=== PATIENT | female | born 2000 | race Caucasian/White ===

== ENCOUNTER 2023-08-01 10:04 | Observation (INO) | payer OTHER, SELFPAY ==
[2023-08-01] VITALS (33 sets, daily range): BP systolic 114–144; BP diastolic 57–93; PULSE 57–69; O2SAT 96–100; BMI 23.8
--- NOTE | ~2023-08-01 | US_ITS ---
EXAMINATION: US OB BPP wo non-stress DATE: 08/01/2023 12:42 INDICATION: Decelerations. Third trimester. TECHNIQUE: Real-time pelvic ultrasound was performed. COMPARISON: None. FINDINGS: There is a single living fetus in vertex presentation. The placenta is posterior. heart rate i s 144 beats per minute (bpm). The deepest vertical pocket is 3.9 cm, which is normal. Biophysical profile performed by the technologist: breathing (30 sec sustained breathing in 30 minutes): 2 out of 2 movement (3 gross body movements in 30 minutes): 2 out of 2 tone (one episode of inktwtw-eiwnmttgm-uipoyjs limb movement): 2 out of 2 Amniotic fluid pocket (2 cm): 2 out of 2 Total score: 8 out of 8 IMPRESSION: 1. Single living fetus in vertex presentation. 2. Biophysical profile 8 out of 8. Reviewed, dictated and finalized at location A.
[2023-08-01] MEDS: LACTATED RINGERS 500 ML 999 ML IV CONT (11:22)
--- NOTE | 2023-08-01 11:39 | OBADM ---
This patient, Joaquina Ortiz, admitted to the OB room OB Post 115 for observation. Patient/family oriented to hospital policies and general routines including ID bracelet, bed and alarms, visiting hours, pain management, procedures, bathroom and other care routines, personal items, smoking policy, room service/diet, and visiting hours. Patient/Family are encouraged to report perceived risks to care and to ask questions if they do not understand what they are told or what they should do.
--- NOTE | 2023-08-01 11:43 | PC.NURSE ---
1040- S. Larry [facility] notified of NST, orders received to give patient fluids.
[2023-08-01 12:23] LABS: Appearance Urine Clear (Clear); Bacteria Urine None Seen /hpf; Bilirubin Urine Negative (Negative); Blood Urine Negative (Negative); Color Urine Yellow (Yellow); Glucose Urine UA Negative (Negative); Ketones Urine Negative (Negative); Leukocyte Esterase Ur 3+ LEU/UL (Negative); Nitrate Urine Negative (Negative); Non Pathogenic Casts 0-2; Protein Urine Negative (Negative); RBC Urine 0-2 /hpf (0-2); Squamous Epithelial Cell Urine None Seen /hpf (Few); Urobilinogen Urine 0.2 mg/dL (<2.0); WBC Urine 21-50 /hpf (0-3); pH Urine 7.5 (5.0-9.0)
[2023-08-01 12:29] LABS: Add Urine Microscopic? YES; Specific Grav Ur 1.004 (1.001-1.035)
--- NOTE | 2023-08-01 12:52 | PC.NURSE ---
1238- S.Larry [facility] notified of ultrasound and lab results. Orders received to keep patient on continuous monitoring overnight. Patient in agreement with plan of care.
[2023-08-01 13:27] LABS: Basophils Percent Auto 0.4 % (0.2-1.2); Eosinophils Absolute Auto 0.2 K/mm3 (0-0.3); Eosinophils Percent Auto 1.8 % (0-4.4); Hematocrit 34.8 % (37.0-47.0); Hemoglobin 11.6 g/dL (12.0-15.0); Immature Granulocyte Absolute 0.07 K/mm3 (0.00-0.031); Immature Granulocyte Percent A 0.6 % (0-0.5); Lymphocytes Absolute Auto 1.39 K/mm3 (0.9-3.2); Lymphocytes Percent Auto 12.6 % (18.3-44.2); Mean Corpuscular HGB Conc 33.3 g/dl (32-36); Mean Platelet Volume 12.5 fl (7.4-10.4); Monocytes Absolute Auto 0.8 K/mm3 (0.1-0.6); Monocytes Percent Auto 6.9 % (2.6-8.5); Neutrophils Absolute Auto 8.5 K/mm3 (1.3-6.7); Neutrophils Percent Auto 77.7 % (45.5-73.1); Platelet Count Result 109 k/mm3 (150-375); Red Blood Count 3.74 M/mm3 (4.2-5.4)
[2023-08-01 13:34] LABS: Creatinine Urine 12.6 mg/dL; Total Protein Urine Random 16 mg/dL; Ur Ttl Prot Creatinine Ratio 1.27 mg/mg (0-0.20)
[2023-08-01 13:36] LABS: Alanine Aminotransferase 15 U/L (6-35); Albumin Level 3.4 g/dL (3.5-5.1); Alkaline Phosphatase 128 U/L (38-126); Anion Gap 5 mmol/L (4-12); Aspartate Amino Transferase 21 U/L (14-36); Bilirubin,Total 0.5 mg/dL (0.2-1.3); Blood Urea Nitrogen 6 mg/dL (7-17); Calcium 8.8 mg/dL (8.4-10.2); Carbon Dioxide 24 mmol/L (22-30); Chloride 109 mmol/L (98-107); Estimated CRCL calculation 140 ml/min; Estimated Glomerular Filt Rate > 60; Glucose 76 mg/dL (65-110); Potassium 3.4 mmol/L (3.4-5.0); Sodium 138 mmol/L (137-145); Uric Acid 2.2 mg/dL (2.5-7.5)
--- NOTE | 2023-08-01 16:36 | PM.IMHP ---
H&P: HPI History of Present Illness Date/Time: 08/01/23 16:36 Chief Complaint: pt to LD for evaluation after variable deceleration in the office on NST, has weekly NST for SGA vs FGR, last US at [facility] EFW 12%. deceleration noted on admission today. currently FHR category 1, no contractions noted. Blood pressure in office and first here >140 and labs drawn. PLT 109, PCR 1.26. last blood pressure 128/77. has been complicated by +THC. Currently denies headache, epigastric pain, visual changes. Review of Systems Review of Systems: All systems reviewed & are unremarkable except as noted in HPI and below Meds Home Medications and Allergies Home Medications Medication Instructions Recorded Confirmed Type aspirin 81 mg capsule 81 mg PO DAILY 08/01/23 08/01/23 History czibiplt-mlx-[id number]-FA 1 mg tablet PO 08/01/23 History tablet Allergies Allergy/AdvReac Type Severity Reaction Status Date / Time Sulfa (Sulfonamide Allergy Hives Verified 08/01/23 11:29 Antibiotics) Vital Signs Vital Signs - 24 hr 08/01/23 10:55 08/01/23 11:00 08/01/23 11:05 Pulse Rate Blood Pressure Pulse Oximetry 96 96 96 Oxygen Delivery 08/01/23 11:10 08/01/23 11:15 08/01/23 11:20 Pulse Rate Blood Pressure Pulse Oximetry 97 97 96 Oxygen Delivery 08/01/23 11:21 08/01/23 11:26 08/01/23 11:31 Pulse Rate Blood Pressure Pulse Oximetry 100 100 100 Oxygen Delivery 08/01/23 11:36 08/01/23 11:41 08/01/23 11:46 Pulse Rate Blood Pressure Pulse Oximetry 100 100 98 Oxygen Delivery 08/01/23 11:51 08/01/23 11:56 08/01/23 12:01 Pulse Rate Blood Pressure Pulse Oximetry 99 100 99 Oxygen Delivery 08/01/23 13:11 08/01/23 14:23 08/01/23 11:00 Pulse Rate 63 62 Blood Pressure 140/84 115/57 L Pulse Oximetry Oxygen Delivery Room Air Exam Const: General: cooperative Nutritional Appearance: average body habitus Chest: Chest palpation & inspection: normal inspection of the chest Resp: Effort & Inspection: normal respiratory effort Cardio: Rate: regular rate Rhythm: regular rhythm GI: Other: gravid, soft Skin: General skin exam: normal color Neuro: General: patient oriented x3 Psych: Appearance: grossly normal H&P: Results Labs Labs: Short CBC 08/01/23 Range/Units 13:20 WBC 11.0 H (4.5-10.0) K/mm3 Hgb 11.6 L (12.0-15.0) g/dL Hct 34.8 L (37.0-47.0) % Plt Count 109 L (150-375) k/mm3 BMP 08/01/23 13:20 Sodium 138 Potassium 3.4 Chloride 109 H Carbon Dioxide 24 BUN 6 L Creatinine 0.40 L Glucose 76 Calcium 8.8 Liver Function 08/01/23 Range/Units 13:20 Total Bilirubin 0.5 (0.2-1.3) mg/dL AST 21 (14-36) U/L ALT 15 (6-35) U/L Alkaline Phosphatase 128 H (38-126) U/L Albumin 3.4 L (3.5-5.1) g/dL Urine 08/01/23 Range/Units 12:09 Urine Color Yellow (Yellow) Urine Appearance Clear (Clear) Urine pH 7.5 (5.0-9.0) Ur Specific [place] 1.004 (1.001-1.035) Urine Protein Negative (Negative) mg/dL Urine Glucose (UA) Negative (Negative) mg/dL Assessment and Plan Assessment and plan (1) growth restriction: Status: Acute (2) Elevated blood pressure reading: Code(s): R03.0 - Elevated blood-pressure reading, without diagnosis of hypertension Status: Acute Plan 33.3 weeks gestation sga vs FGR PLT 109, PCR >1 plan rpt labs in am continuous monitoring managing with Dr. Moralez
--- NOTE | 2023-08-01 17:00 | PC.NURSE ---
Randa Juarez CNM at bedside to discuss monitoring overnight. Labs ordered for 0500. Patient in agreement with plan of care. IV removed per patient's request.
[2023-08-02] VITALS (53 sets, daily range): BP systolic 107–153; BP diastolic 55–98; PULSE 55–137; O2SAT 96–100
[2023-08-02 05:02] LABS: Basophils Percent Auto 0.3 % (0.2-1.2); Eosinophils Absolute Auto 0.2 K/mm3 (0-0.3); Eosinophils Percent Auto 2.4 % (0-4.4); Hemoglobin 12.2 g/dL (12.0-15.0); Immature Granulocyte Absolute 0.06 K/mm3 (0.00-0.031); Immature Granulocyte Percent A 0.6 % (0-0.5); Immature Platelet Fraction Pct 10.8 % (0.9-11.2); Lymphocytes Absolute Auto 1.62 K/mm3 (0.9-3.2); Lymphocytes Percent Auto 16.1 % (18.3-44.2); Mean Corpuscular HGB Conc 33.9 g/dl (32-36); Mean Corpuscular Volume 91.6 fl (80-100); Mean Platelet Volume 11.4 fl (7.4-10.4); Monocytes Absolute Auto 0.6 K/mm3 (0.1-0.6); Monocytes Percent Auto 6.4 % (2.6-8.5); Neutrophils Absolute Auto 7.5 K/mm3 (1.3-6.7); Neutrophils Percent Auto 74.2 % (45.5-73.1); Platelet Count Result 120 k/mm3 (150-375); Red Blood Count 3.93 M/mm3 (4.2-5.4); Red Cell Distribution Width 13.1 % (11.5-14.5); White Blood Count 10.1 K/mm3 (4.5-10.0)
[2023-08-02 05:10] LABS: Alanine Aminotransferase 16 U/L (6-35); Albumin Level 3.3 g/dL (3.5-5.1); Alkaline Phosphatase 131 U/L (38-126); Anion Gap 4 mmol/L (4-12); Aspartate Amino Transferase 21 U/L (14-36); Bilirubin,Total 0.8 mg/dL (0.2-1.3); Blood Urea Nitrogen 5 mg/dL (7-17); Calcium 8.7 mg/dL (8.4-10.2); Carbon Dioxide 22 mmol/L (22-30); Chloride 109 mmol/L (98-107); Estimated CRCL calculation 115 ml/min; Estimated Glomerular Filt Rate > 60; Glucose 90 mg/dL (65-110); Potassium 3.1 mmol/L (3.4-5.0); Sodium 135 mmol/L (137-145); Uric Acid 2.3 mg/dL (2.5-7.5)
[2023-08-02] MEDS: TERBUTALINE SULFATE 1 MG/ML VIAL 0.25 MG SUB-Q (05:47)
--- NOTE | 2023-08-27 17:57 | PM.OBTRLD ---
OB - Triage/Final Diagnosis Visit Information Comments/Additional reasons for admission: I have assessed the risk for this patient, Joaquina Ortiz, and determined that she would benefit from observation care. Evaluation Laboratory results: Laboratory Tests 08/01/23 08/01/23 08/02/23 12:09 13:20 04:55 WBC 11.0 H Cancelled RBC 3.74 L Hgb 11.6 L Hct 34.8 L MCV 93.0 MCH 31.0 MCHC 33.3 RDW 13.0 Plt Count 109 L MPV 12.5 H Immature Gran % (Auto) 0.6 H Neut % (Auto) 77.7 H Lymph % (Auto) 12.6 L [place] % (Auto) 6.9 Eos % (Auto) 1.8 Baso % (Auto) 0.4 Lymph # (Auto) 1.39 [place] # (Auto) 0.8 H Eos # (Auto) 0.2 Baso # (Auto) 0.0 Abs Immat Gran (auto) 0.07 H Absolute Neuts (auto) 8.5 H Absolute Nucleated RBC 0.000 Nucleated RBC % 0.0 % Immature Plt Fraction Sodium 138 Potassium 3.4 Chloride 109 H Carbon Dioxide 24 Anion Gap 5 BUN 6 L Creatinine 0.40 L Estim Creat Clear Calc 140 Estimated GFR > 60 Glucose 76 Uric Acid 2.2 L Calcium 8.8 Total Bilirubin 0.5 AST 21 ALT 15 Alkaline Phosphatase 128 H Total Protein 7.0 Albumin 3.4 L Urine Color Yellow Urine Appearance Clear Urine pH 7.5 Ur Specific [place] 1.004 Urine Protein Negative Urine Glucose (UA) Negative Urine Ketones Negative Ur Blood (Man) Negative Urine Nitrate Negative Urine Bilirubin Negative Urine Urobilinogen 0.2 Leukocyte Esterase Rfl 3+ H Urine RBC 0-2 Urine WBC 21-50 H Ur Squamous Epith Cells None seen Urine Bacteria None seen Urine Casts 0-2 U Random Total Protein 16 Urine Creatinine 12.6 Protein/Creat Ratio 2 1.27 H 08/02/23 08/02/23 08/02/23 04:55 04:55 04:55 WBC 10.1 H RBC Cancelled 3.93 L Hgb Cancelled 12.2 Hct Cancelled MCV MCH MCHC RDW Plt Count MPV Immature Gran % (Auto) Neut % (Auto) Lymph % (Auto) [place] % (Auto) Eos % (Auto) Baso % (Auto) Lymph # (Auto) [place] # (Auto) Eos # (Auto) Baso # (Auto) Abs Immat Gran (auto) Absolute Neuts (auto) Absolute Nucleated RBC Nucleated RBC % % Immature Plt Fraction Sodium Potassium Chloride Carbon Dioxide Anion Gap BUN Creatinine Estim Creat Clear Calc Estimated GFR Glucose Uric Acid Calcium Total Bilirubin AST ALT Alkaline Phosphatase Total Protein Albumin Urine Color Urine Appearance Urine pH Ur Specific [place] Urine Protein Urine Glucose (UA) Urine Ketones Ur Blood (Man) Urine Nitrate Urine Bilirubin Urine Urobilinogen Leukocyte Esterase Rfl Urine RBC Urine WBC Ur Squamous Epith Cells Urine Bacteria Urine Casts U Random Total Protein Urine Creatinine Protein/Creat Ratio 2 08/02/23 08/02/23 08/02/23 04:55 04:55 04:55 WBC RBC Hgb Hct 36.0 L MCV Cancelled 91.6 MCH Cancelled 31.0 MCHC Cancelled RDW Plt Count MPV Immature Gran % (Auto) Neut % (Auto) Lymph % (Auto) [place] % (Auto) Eos % (Auto) Baso % (Auto) Lymph # (Auto) [place] # (Auto) Eos # (Auto) Baso # (Auto) Abs Immat Gran (auto) Absolute Neuts (auto) Absolute Nucleated RBC Nucleated RBC % % Immature Plt Fraction Sodium Potassium Chloride Carbon Dioxide Anion Gap BUN Creatinine Estim Creat Clear Calc Estimated GFR Glucose Uric Acid Calcium Total Bilirubin AST ALT Alkaline Phosphatase Total Protein Albumin Urine Color Urine Appearance Urine pH Ur Specific [place] Urine Protein Urine Glucose (UA) Urine Ketones Ur Blood (Man) Urine Nitrate Urine Bilirubin Urine Urobilinogen Leukocyte Esterase Rfl Urine RBC Urine WBC Ur Squamous Epith C
== END 2023-08-02 08:43 | disposition home or self-care (01) ==
LOC: ANHOBOP 10:46 → ANHOBPP 10:50
PROVIDERS: Admitting Provider Obstetrics & Gynecology; PCP Advanced Practice Midwife; Visit Provider Obstetrics & Gynecology
DX: O36.5930 Maternal care for other known or suspected poor fetal growth, third trimester, not applicable or unspecified (principal); O16.3 Unspecified maternal hypertension, third trimester; Z3A.33 33 weeks gestation of pregnancy
CPT/HCPCS: 36415; 76819; 80053; 81001; 82570; 84156; 84550; 85025; 85055; 87086; 87088; 96372; G0378; G0379; J3105; J7120

== ENCOUNTER 2023-08-19 11:42 | Outpatient (CLI) | payer OTHER, SELFPAY ==
--- NOTE | ~2023-08-19 | US_ITS ---
LIMITED OBSTETRIC ULTRASOUND/BIOPHYSICAL PROFILE Ordering provider: Josesito Rascon MD History: . BPP/ nonreactive NST in office . Comparison: August 01, 2023 FINDINGS: PRESENTATION: Vertex PLACENTAL LOCATION: Posterior No previa. HEART RATE: 136 bpm (normal is between 110 to 160 bpm). AMNIOTIC FLUID INDEX: Normal. The largest pocket is 2.9 cm. SCORE: breathing movements: 2 movements: 2 tone: 2 Amniotic fluid volume: 2 Total: 8 IMPRESSION: Normal biophysical profile. Reviewed, dictated and finalized at location A. IMPRESSION: Normal biophysical profile.
[2023-08-19 12:14] VITALS: BP 142/97; PULSE 72
[2023-08-19 12:20] LABS: Basophils Percent Auto 0.2 % (0.2-1.2); Eosinophils Percent Auto 0.3 % (0-4.4); Hematocrit 34.8 % (37.0-47.0); Hemoglobin 11.9 g/dL (12.0-15.0); Immature Granulocyte Percent A 0.8 % (0-0.5); Immature Platelet Fraction Pct 12.3 % (0.9-11.2); Lymphocytes Absolute Auto 1.59 K/mm3 (0.9-3.2); Lymphocytes Percent Auto 12.4 % (18.3-44.2); Mean Corpuscular HGB Conc 34.2 g/dl (32-36); Mean Corpuscular Hemoglobin 31.2 pg (26-34); Mean Corpuscular Volume 91.1 fl (80-100); Mean Platelet Volume 11.7 fl (7.4-10.4); Monocytes Absolute Auto 0.6 K/mm3 (0.1-0.6); Monocytes Percent Auto 4.7 % (2.6-8.5); Neutrophils Absolute Auto 10.5 K/mm3 (1.3-6.7); Neutrophils Percent Auto 81.6 % (45.5-73.1); Platelet Count Result 140 k/mm3 (150-375); Red Blood Count 3.82 M/mm3 (4.2-5.4); Red Cell Distribution Width 13.3 % (11.5-14.5); White Blood Count 12.8 K/mm3 (4.5-10.0)
[2023-08-19 12:29] LABS: Alanine Aminotransferase 15 U/L (6-35); Albumin Level 3.4 g/dL (3.5-5.1); Alkaline Phosphatase 135 U/L (38-126); Anion Gap 4 mmol/L (4-12); Aspartate Amino Transferase 18 U/L (14-36); Bilirubin,Total 0.5 mg/dL (0.2-1.3); Blood Urea Nitrogen 7 mg/dL (7-17); Calcium 9.1 mg/dL (8.4-10.2); Carbon Dioxide 24 mmol/L (22-30); Chloride 108 mmol/L (98-107); Estimated Glomerular Filt Rate > 60; Glucose 75 mg/dL (65-110); Potassium 3.3 mmol/L (3.4-5.0); Sodium 136 mmol/L (137-145); Uric Acid 2.7 mg/dL (2.5-7.5)
[2023-08-19 12:30] VITALS: BP 140/92; PULSE 73
[2023-08-19 12:32] LABS: Creatinine Urine 40.5 mg/dL; Total Protein Urine Random 16 mg/dL
[2023-08-19 12:37] LABS: Appearance Urine Clear (Clear); Bacteria Urine None Seen /hpf; Bilirubin Urine Negative (Negative); Blood Urine Negative (Negative); Color Urine Yellow (Yellow); Glucose Urine UA Negative (Negative); Ketones Urine Negative (Negative); Leukocyte Esterase Ur 2+ LEU/UL (Negative); Nitrate Urine Negative (Negative); Non Pathogenic Casts 0-2; Protein Urine Negative (Negative); RBC Urine 0-2 /hpf (0-2); Specific Grav Ur 1.006 (1.001-1.035); Squamous Epithelial Cell Urine Occasional /hpf (Few); Urobilinogen Urine 0.2 mg/dL (<2.0)
[2023-08-19 12:44] VITALS: BP 144/85; PULSE 72
[2023-08-19 12:50] LABS: Add Urine Microscopic? YES
[2023-08-19 13:00] VITALS: BP 144/94; PULSE 69
[2023-08-19 13:05] VITALS: BP 144/94; PULSE 75
--- NOTE | 2023-08-19 13:05 | PC.NURSE ---
1252- Dr. Rascon notified of reactive NST and lab results
== END 2023-08-19 13:34 | disposition home or self-care (01) ==
LOC: ANHOBOP 11:47 → ANHLDR 12:00
PROVIDERS: PCP Advanced Practice Midwife; Visit Provider Obstetrics & Gynecology
DX: O13.9 Gestational [pregnancy-induced] hypertension without significant proteinuria, unspecified trimester (principal)
CPT/HCPCS: 36415; 59025; 76819; 80053; 81001; 82570; 84156; 84550; 85025; 85055; 87086; 99199

== ENCOUNTER 2023-08-22 11:21 | Inpatient (IN) | payer OTHER, SELFPAY ==
[2023-08-22] VITALS (38 sets, daily range): BP systolic 129–167; BP diastolic 73–107; PULSE 66–139; TEMP 36.4–36.7; BMI 24.0
[2023-08-22] MEDS: miSOPROStol 25 MCG TABLET 50 MCG PO ×3 (13:08→20:57)
[2023-08-22 13:13] LABS: Basophils Percent Auto 0.3 % (0.2-1.2); Eosinophils Percent Auto 0.1 % (0-4.4); Hemoglobin 11.4 g/dL (12.0-15.0); Immature Granulocyte Absolute 0.08 K/mm3 (0.00-0.031); Immature Granulocyte Percent A 0.7 % (0-0.5); Immature Platelet Fraction Pct 11.5 % (0.9-11.2); Lymphocytes Percent Auto 13.6 % (18.3-44.2); Mean Corpuscular HGB Conc 34.5 g/dl (32-36); Mean Corpuscular Hemoglobin 31.4 pg (26-34); Mean Corpuscular Volume 90.9 fl (80-100); Mean Platelet Volume 11.9 fl (7.4-10.4); Monocytes Absolute Auto 0.5 K/mm3 (0.1-0.6); Monocytes Percent Auto 4.5 % (2.6-8.5); Neutrophils Absolute Auto 9.5 K/mm3 (1.3-6.7); Neutrophils Percent Auto 80.8 % (45.5-73.1); Platelet Count Result 131 k/mm3 (150-375); Red Blood Count 3.63 M/mm3 (4.2-5.4); Red Cell Distribution Width 13.2 % (11.5-14.5); White Blood Count 11.8 K/mm3 (4.5-10.0)
[2023-08-22 13:24] LABS: Alanine Aminotransferase 16 U/L (6-35); Albumin Level 3.6 g/dL (3.5-5.1); Alkaline Phosphatase 151 U/L (38-126); Anion Gap 6 mmol/L (4-12); Aspartate Amino Transferase 20 U/L (14-36); Bilirubin,Total 0.8 mg/dL (0.2-1.3); Blood Urea Nitrogen 6 mg/dL (7-17); Calcium 8.7 mg/dL (8.4-10.2); Carbon Dioxide 22 mmol/L (22-30); Chloride 108 mmol/L (98-107); Estimated Glomerular Filt Rate > 60; Glucose 83 mg/dL (65-110); Potassium 3.2 mmol/L (3.4-5.0); Sodium 136 mmol/L (137-145)
[2023-08-22 13:25] LABS: Uric Acid 2.3 mg/dL (2.5-7.5)
[2023-08-22] MEDS: LABETALOL HCL 100 MG TABLET 200 MG PO (13:36)
[2023-08-22 14:26] LABS: HIV 1/2 Ab P24 Ag Result Negative (Negative)
[2023-08-22 14:38] LABS: Amphetamine Screen Urine Negative (Negative); Barbiturate Screen Urine Negative (Negative); Benzodiazepines Screen Urine Negative (Negative); Cannabinoid Screen Urine Positive (Negative); Cocaine Screen Urine Negative (Negative); Methadone Screen Urine Negative (Negative); Opiate Screen Urine Negative (Negative); Phencyclidine Screen Urine Negative (Negative)
--- NOTE | 2023-08-22 15:32 | LDADM ---
This patient, Joaquina Ortiz, was admitted to Labor/Delivery/Recovery 107 on 08/22/23 at 11:21. Plans for labor, pain management and were discussed with patient. Patient/family oriented to hospital policies and general routines including ID bracelet, bed and alarms, visiting hours, pain management, procedures, bathroom and other care routines, personal items, smoking policy, room service/diet and guest tray routines, infant security routines, and visiting hours. Patient/Family are encouraged to report perceived risks to care and to ask questions if they do not understand what they are told or what they should do. See OBIX for further documentation.
--- NOTE | 2023-08-22 16:35 | PM.IMHP ---
H&P: HPI History of Present Illness Date/Time: 08/22/23 16:35 Chief Complaint: at 36.3 weeks gestation, admitted per [facility] recommendation for IOL for SGA, poor maternal weight gain, Cannibis exposure, and severe blood pressure readings in the office. at this time, pt denies headache, visual changes, epigastric pain. Review of Systems Review of Systems: All systems reviewed & are unremarkable except as noted in HPI and below PMFSH Family History Family History (Updated 08/22/23 @ 13:18 by Barbara Cantrell RN) Other Patient denies significant medical history Social History Social History Smoking status: Never smoker Second hand tobacco smoke exposure: Yes Substance use: current Last use: daily Do You Feel Safe in your Home?: Yes Lack of Transportation: No Lack of Food: Never True Current Housing: I Have Housing Concerned About Future Housing: No Difficulty Paying Gas/Electric Bills: No Difficulty Paying for Meds: No Currently Unemployed: No Education: High School Diploma/GED Difficulty w/ Childcare or Family Care: No Spiritual care concerns: No Meds Home Medications and Allergies Home Medications Medication Instructions Recorded Confirmed Type aspirin 81 mg capsule 81 mg PO DAILY 08/01/23 08/22/23 History obwvkhdt-ubr-Vx-FA 1 mg 1 tablet PO DAILY 08/01/23 08/22/23 History tablet Allergies Allergy/AdvReac Type Severity Reaction Status Date / Time Sulfa (Sulfonamide Allergy Hives Verified 08/22/23 13:16 Antibiotics) Vital Signs Vital Signs - 24 hr 08/22/23 11:39 08/22/23 11:45 08/22/23 12:00 Temperature Pulse Rate 76 71 71 Blood Pressure 155/100 H 153/96 H 137/91 H Oxygen Delivery 08/22/23 12:15 08/22/23 12:30 08/22/23 13:15 Temperature Pulse Rate 69 75 71 Blood Pressure 134/95 H 136/93 H 151/97 H Oxygen Delivery 08/22/23 13:30 08/22/23 13:46 08/22/23 14:01 Temperature Pulse Rate 75 68 68 Blood Pressure 167/106 H 152/96 H 141/103 H Oxygen Delivery 08/22/23 14:16 08/22/23 14:30 08/22/23 14:46 Temperature Pulse Rate 139 H 75 74 Blood Pressure 144/107 H 153/101 H 137/91 H Oxygen Delivery 08/22/23 13:00 08/22/23 15:00 08/22/23 15:15 Temperature 36.7 C Pulse Rate 81 78 Blood Pressure 139/85 134/87 Oxygen Delivery 08/22/23 16:00 08/22/23 13:36 08/22/23 15:21 Temperature Pulse Rate 87 69 Blood Pressure 141/92 H Oxygen Delivery Room Air 08/22/23 13:17 Temperature Pulse Rate 71 Blood Pressure 151/97 H Oxygen Delivery Exam Const: General: cooperative and healthy appearing Chest: Chest palpation & inspection: normal inspection of the chest Resp: Effort & Inspection: normal respiratory effort Cardio: Rate: regular rate Rhythm: regular rhythm GI: Other: soft, gravid : Other: per RN exam Back/Spine/Pelvis: Back: no CVA tenderness Skin: General skin exam: normal color Neuro: General: patient oriented x3 Extrem: Right lower extremity: normal to inspection Left lower extremity: normal to inspection Psych: Appearance: grossly normal H&P: Results Labs Labs: Short CBC 08/22/23 Range/Units 13:04 WBC 11.8 H (4.5-10.0) K/mm3 Hgb 11.4 L (12.0-15.0) g/dL Hct 33.0 L (37.0-47.0) % Plt Count 131 L (150-375) k/mm3 BMP 08/22/23 13:04 Sodium 136 L Potassium 3.2 L Chloride 108 H Carbon Dioxide 22 BUN 6 L Creatinine 0.50 L Glucose 83 Calcium 8.7 Liver Function 08/22/23 Range/Units 13:04 Total Bilirubin 0.8 (0.2-1.3) mg/dL AST 20 (14-36) U/L ALT 16 (6-35) U/L Alkaline Phosphatase 151 H (38-126) U/L Albumin 3.6 (3.5-5.1) g/dL Assessment and Plan Assessment and plan (1) SGA (small for gestational age), , affecting care of mother, antepartum: Code(s): O36.5990 - Maternal care for other known or suspected poor growth, unspecified trimester,
--- NOTE | 2023-08-22 16:53 | WPDANESEPP ---
Anes - Eval Pre Procedure Procedure: Labor Epidural Date/Time: 08/22/23 16:53 Surgeon: Kirt Preop Diagnosis: Labor Pain Pre Op Diagnosis: Induction of Labor Patient Data Age: 23 Gender: F Height: 1.57 m Weight: 59.5 kg Last Vital Signs Temp 36.7 C 08/22/23 13:00 Pulse 87 08/22/23 16:00 BP 141/92 H 08/22/23 16:00 O2 Del Method Room Air 08/22/23 15:21 Allergies Allergy/AdvReac Type Severity Reaction Status Date / Time Sulfa (Sulfonamide Allergy Hives Verified 08/22/23 13:16 Antibiotics) Home Medications Medication Instructions Recorded Confirmed Type aspirin 81 mg capsule 81 mg PO DAILY 08/01/23 08/22/23 History enbqlojc-rnh-Yy-FA 1 mg 1 tablet PO DAILY 08/01/23 08/22/23 History tablet Laboratory Tests 08/22/23 08/22/23 13:04 13:41 WBC 11.8 H K/mm3 (4.5-10.0) RBC 3.63 L M/mm3 (4.2-5.4) Hgb 11.4 L g/dL (12.0-15.0) Hct 33.0 L % (37.0-47.0) MCV 90.9 fl (80-100) MCH 31.4 pg (26-34) MCHC 34.5 g/dl (32-36) RDW 13.2 % (11.5-14.5) Plt Count 131 L k/mm3 (150-375) MPV 11.9 H fl (7.4-10.4) Immature Gran % (Auto) 0.7 H % (0-0.5) Neut % (Auto) 80.8 H % (45.5-73.1) Lymph % (Auto) 13.6 L % (18.3-44.2) [place] % (Auto) 4.5 % (2.6-8.5) Eos % (Auto) 0.1 % (0-4.4) Baso % (Auto) 0.3 % (0.2-1.2) Lymph # (Auto) 1.60 K/mm3 (0.9-3.2) [place] # (Auto) 0.5 K/mm3 (0.1-0.6) Eos # (Auto) 0.0 K/mm3 (0-0.3) Baso # (Auto) 0.0 K/mm3 (0.0-0.1) Abs Immat Gran (auto) 0.08 H K/mm3 (0.00-0.031) Absolute Neuts (auto) 9.5 H K/mm3 (1.3-6.7) Absolute Nucleated RBC 0.000 K/mm3 (0.0-0.012) Nucleated RBC % 0.0 % (0.0-0.2) % Immature Plt Fraction 11.5 H % (0.9-11.2) Sodium 136 L mmol/L (137-145) Potassium 3.2 L mmol/L (3.4-5.0) Chloride 108 H mmol/L (98-107) Carbon Dioxide 22 mmol/L (22-30) Anion Gap 6 mmol/L (4-12) BUN 6 L mg/dL (7-17) Creatinine 0.50 L mg/dL (0.7-1.0) Estim Creat Clear Calc Not Reportable Estimated GFR > 60 (59 - ) Glucose 83 mg/dL (65-110) Uric Acid 2.3 L mg/dL (2.5-7.5) Calcium 8.7 mg/dL (8.4-10.2) Total Bilirubin 0.8 mg/dL (0.2-1.3) AST 20 U/L (14-36) ALT 16 U/L (6-35) Alkaline Phosphatase 151 H U/L (38-126) Total Protein 7.0 g/dL (6.3-8.2) Albumin 3.6 g/dL (3.5-5.1) Urine Opiates Screen Negative (Negative) Urine Methadone Screen Negative (Negative) Ur Barbiturates Screen Negative (Negative) Ur Phencyclidine Scrn Negative (Negative) Ur Amphetamine Screen Negative (Negative) U Benzodiazepines Scrn Negative (Negative) Urine Cocaine Screen Negative (Negative) U Cannabinoids Screen Positive A (Negative) RPR Pending HIV 1&2 Ab/P24 Ag 4thGn Negative (Negative) Blood Type A Positive Antibody Screen Negative : gestational age (GINO 09/16/23) Patient hx anesthesia problems: none Family hx anesthesia problems: none Results Review: All pre-operative results and documents have been reviewed as part of the pre-operative evaluation. [facility] Family History Family History Other Patient denies significant medical history Social History Social History Smoking status: Never smoker Second hand tobacco smoke exposure: Yes Substance use: current Last use: daily Do You Feel Safe in your Home?: Yes Lack of Transportation: No Lack of Food: Never True Current Housing: I Have Housing Concerned About Future Housing: No Difficulty Paying Gas/Electric Bills: No Difficulty Payin
[2023-08-22 17:02] LABS: Rapid Plasma Reagin Non-Reactive (NonReactive)
[2023-08-22] MEDS: POTASSIUM CHLORIDE 20 MEQ ER TABLET PO (19:43)
[2023-08-22] MEDS: ACETAMINOPHEN 500 MG TABLET 1000 MG PO (20:53)
[2023-08-22 21:01] LABS: Basophils Percent Auto 0.2 % (0.2-1.2); Eosinophils Percent Auto 0.2 % (0-4.4); Hematocrit 33.5 % (37.0-47.0); Hemoglobin 11.5 g/dL (12.0-15.0); Immature Granulocyte Absolute 0.07 K/mm3 (0.00-0.031); Immature Granulocyte Percent A 0.6 % (0-0.5); Immature Platelet Fraction Pct 12.1 % (0.9-11.2); Lymphocytes Absolute Auto 1.69 K/mm3 (0.9-3.2); Lymphocytes Percent Auto 13.9 % (18.3-44.2); Mean Corpuscular HGB Conc 34.3 g/dl (32-36); Mean Corpuscular Hemoglobin 31.3 pg (26-34); Mean Corpuscular Volume 91.3 fl (80-100); Monocytes Absolute Auto 0.6 K/mm3 (0.1-0.6); Monocytes Percent Auto 5.3 % (2.6-8.5); Neutrophils Absolute Auto 9.7 K/mm3 (1.3-6.7); Neutrophils Percent Auto 79.8 % (45.5-73.1); Platelet Count Result 137 k/mm3 (150-375); Red Blood Count 3.67 M/mm3 (4.2-5.4); Red Cell Distribution Width 13.1 % (11.5-14.5); White Blood Count 12.1 K/mm3 (4.5-10.0)
[2023-08-22 21:07] LABS: Alanine Aminotransferase 17 U/L (6-35); Albumin Level 3.5 g/dL (3.5-5.1); Alkaline Phosphatase 146 U/L (38-126); Anion Gap 5 mmol/L (4-12); Aspartate Amino Transferase 21 U/L (14-36); Bilirubin,Total 0.7 mg/dL (0.2-1.3); Blood Urea Nitrogen 5 mg/dL (7-17); Calcium 8.8 mg/dL (8.4-10.2); Carbon Dioxide 24 mmol/L (22-30); Chloride 107 mmol/L (98-107); Estimated CRCL calculation 115 ml/min; Estimated Glomerular Filt Rate > 60; Glucose 92 mg/dL (65-110); Potassium 3.3 mmol/L (3.4-5.0); Sodium 136 mmol/L (137-145); Uric Acid 2.3 mg/dL (2.5-7.5)
[2023-08-23] VITALS (253 sets, daily range): BP systolic 125–172; BP diastolic 62–140; PULSE 66–166; RESP 16; TEMP 36.3–36.7; O2SAT 92–100
[2023-08-23] MEDS: LABETALOL HCL 100 MG TABLET 200 MG PO ×4 (01:06→22:36)
[2023-08-23] MEDS: LACTATED RINGERS 1,000 ML 125 ML IV CONT ×2 (01:49→09:50)
[2023-08-23] MEDS: OXYTOCIN 30 UNITS/NS 500 ML 30 UNITS/500 ML BAG 6 UNITS IV CONT (01:49)
--- NOTE | 2023-08-23 08:17 | PM.OBPNLAB ---
Pain Control Date/time seen: 08/23/23 08:17 Comments: pt comfortable, occasional cramping, blood pressures stable, labs stable, denies headache, visual changes, epigastric pain. currently on pitocin, FHR category 1, contractions every 1-5 minutes Pelvic Exam Dilation (cm): 2 Effacement (%): 70 station: -2 Amniotic membrane status: Ruptured (AROM moderate amount of clear odorless fluid)
[2023-08-23] MEDS: ONDANSETRON INJ 4 MG/2 ML VIAL IV PUSH ×2 (08:43→19:55)
[2023-08-23] MEDS: fentaNYL CITRATE INJ (*CRX) 100 MCG/2 ML VIAL 50 MCG IV PUSH (13:17)
[2023-08-23] MEDS: MAGNESIUM SULF 4 GM/WATER100ML 4 GM/100 ML BAG IVPB (14:52)
[2023-08-23] MEDS: MAGNESIUM SULF 20GM/WATER500ML 500 ML 50 MG IV CONT (15:27)
[2023-08-23] MEDS: LACTATED RINGERS 1,000 ML 75 ML IV CONT (16:14)
[2023-08-23] MEDS: SODIUM CHLORIDE 0.9% IV 300 ML 600 ML I-UTERINE (16:38)
[2023-08-23] MEDS: LABETALOL HCL INJ 100 MG/20 ML VIAL 20 MG IV PUSH ×2 (20:45→23:00)
[2023-08-23 21:00] LABS: Basophils Percent Auto 0.2 % (0.2-1.2); Hematocrit 34.3 % (37.0-47.0); Immature Granulocyte Absolute 0.09 K/mm3 (0.00-0.031); Immature Granulocyte Percent A 0.5 % (0-0.5); Lymphocytes Absolute Auto 0.99 K/mm3 (0.9-3.2); Lymphocytes Percent Auto 5.7 % (18.3-44.2); Mean Corpuscular Hemoglobin 31.6 pg (26-34); Mean Corpuscular Volume 90.3 fl (80-100); Mean Platelet Volume 11.4 fl (7.4-10.4); Monocytes Absolute Auto 0.7 K/mm3 (0.1-0.6); Monocytes Percent Auto 4.1 % (2.6-8.5); Neutrophils Absolute Auto 15.4 K/mm3 (1.3-6.7); Neutrophils Percent Auto 89.5 % (45.5-73.1); Platelet Count Result 141 k/mm3 (150-375); Red Cell Distribution Width 13.2 % (11.5-14.5); White Blood Count 17.3 K/mm3 (4.5-10.0)
[2023-08-23 21:15] LABS: Alanine Aminotransferase 17 U/L (6-35); Albumin Level 3.5 g/dL (3.5-5.1); Alkaline Phosphatase 188 U/L (38-126); Anion Gap 7 mmol/L (4-12); Aspartate Amino Transferase 21 U/L (14-36); Bilirubin,Total 1.1 mg/dL (0.2-1.3); Blood Urea Nitrogen 4 mg/dL (7-17); Calcium 7.7 mg/dL (8.4-10.2); Carbon Dioxide 21 mmol/L (22-30); Chloride 106 mmol/L (98-107); Estimated CRCL calculation 140 ml/min; Estimated Glomerular Filt Rate > 60; Glucose 121 mg/dL (65-110); Potassium 3.2 mmol/L (3.4-5.0); Sodium 134 mmol/L (137-145)
[2023-08-23] MEDS: LABETALOL HCL INJ 100 MG/20 ML VIAL 40 MG IV PUSH ×2 (21:27→23:24)
[2023-08-23] MEDS: miSOPROStol 200 MCG TABLET 1000 MCG RECTAL (22:09)
--- NOTE | 2023-08-23 22:24 | PM.OBPRVD ---
OB - Vaginal Delivery Note Procedure Delivery date: 08/23/23 Events: Intrauterine Growth Restriction (IUGR) and Preeclampsia w severe features Induction method: AROM, Per Misoprostol Protocol and Per Pitocin Protocol Delivery monitor: External FHT and Internal Uterine Route of delivery: Episiotomy description: None Laceration Description: None Delivery repair: vicryl Specimen: Yes Quantitative Blood Loss (ml): 250 Anesthesia type: Epidural Disposition: Floor Complications: No immediate complications Narrative: baby to nursery for evaluation, financial systems administrator at bs. PT VSS. [place] [facility] Weeks of gestation at delivery: 36
[2023-08-23] MEDS: OXYTOCIN 30 UNITS/NS 500 ML 30 UNITS/500 ML BAG 125 UNITS IV CONT (22:36)
[2023-08-23] MEDS: WITCH HAZEL 40 PADS 1 PAD TOPICAL (23:35)
[2023-08-23] MEDS: BENZOCAINE 20% AER SPR (*SP) 56 GM CAN 1 SPRAY TOPICAL (23:35)
[2023-08-24] VITALS (28 sets, daily range): BP systolic 132–157; BP diastolic 81–105; PULSE 77–108; RESP 16–20; TEMP 36.6–37.6; O2SAT 96–100
[2023-08-24] MEDS: MAGNESIUM SULF 20GM/WATER500ML 500 ML 50 MG IV CONT ×2 (01:27→11:30)
[2023-08-24] MEDS: ONDANSETRON INJ 4 MG/2 ML VIAL IV PUSH (02:03)
--- NOTE | 2023-08-24 02:34 | OBPPTRN ---
08/24/2023 at 0058 Patient transferred to post room 288 in wheelchair. Support person present. Oriented to unit, room, information board, rooming in, admission packet and security measures. Patient and her significant other state understanding.
[2023-08-24 05:09] LABS: Hemoglobin 11.5 g/dL (12.0-15.0); Immature Platelet Fraction Pct 11.5 % (0.9-11.2); Mean Corpuscular HGB Conc 34.8 g/dl (32-36); Mean Corpuscular Hemoglobin 31.3 pg (26-34); Mean Corpuscular Volume 89.7 fl (80-100); Mean Platelet Volume 11.6 fl (7.4-10.4); Platelet Count Result 135 k/mm3 (150-375); Red Blood Count 3.68 M/mm3 (4.2-5.4); White Blood Count 18.5 K/mm3 (4.5-10.0)
[2023-08-24 05:40] LABS: Alanine Aminotransferase 16 U/L (6-35); Albumin Level 3.2 g/dL (3.5-5.1); Alkaline Phosphatase 168 U/L (38-126); Anion Gap 6 mmol/L (4-12); Aspartate Amino Transferase 23 U/L (14-36); Calcium 7.1 mg/dL (8.4-10.2); Carbon Dioxide 22 mmol/L (22-30); Chloride 105 mmol/L (98-107); Estimated CRCL calculation 115 ml/min; Estimated Glomerular Filt Rate > 60; Glucose 121 mg/dL (65-110); Potassium 2.9 mmol/L (3.4-5.0); Sodium 133 mmol/L (137-145)
[2023-08-24 05:57] LABS: Blood Urea Nitrogen < 2 mg/dL (7-17)
[2023-08-24] MEDS: LABETALOL HCL 100 MG TABLET 200 MG PO ×3 (06:06→21:51)
[2023-08-24] MEDS: LACTATED RINGERS 1,000 ML 75 ML IV CONT ×2 (07:38→20:15)
[2023-08-24] MEDS: MULTIVIT/MIN/PREN/FOL AC/IRON TABLET 1 TAB PO (07:39)
--- NOTE | 2023-08-24 07:42 | PM.OBPNVD ---
OB - PN: Subj Subjective Date/time seen: 08/24/23 07:42 Interval history: post day 1 magnesium sulfate x 24 hours post delivery voiding without difficulty, passing flatus no severe range pressures, denies headache, visual changes, epigastric pain OB - PN: Obj Data Labs 08/24/23 04:52 08/24/23 04:52 Labs: Laboratory Results - last 24 hr 08/23/23 08/24/23 20:49 04:52 WBC 17.3 H 18.5 H RBC 3.80 L 3.68 L Hgb 12.0 11.5 L Hct 34.3 L 33.0 L MCV 90.3 89.7 MCH 31.6 31.3 MCHC 35.0 34.8 RDW 13.2 13.0 Plt Count 141 L 135 L MPV 11.4 H 11.6 H Immature Gran % (Auto) 0.5 Neut % (Auto) 89.5 H Lymph % (Auto) 5.7 L [place] % (Auto) 4.1 Eos % (Auto) 0.0 Baso % (Auto) 0.2 Lymph # (Auto) 0.99 [place] # (Auto) 0.7 H Eos # (Auto) 0.0 Baso # (Auto) 0.0 Abs Immat Gran (auto) 0.09 H Absolute Neuts (auto) 15.4 H Absolute Nucleated RBC 0.000 Nucleated RBC % 0.0 % Immature Plt Fraction 11.0 11.5 H Sodium 134 L 133 L Potassium 3.2 L 2.9 L Chloride 106 105 Carbon Dioxide 21 L 22 Anion Gap 7 6 BUN 4 L < 2 L Creatinine 0.40 L 0.50 L Estim Creat Clear Calc 140 115 Estimated GFR > 60 > 60 Glucose 121 H 121 H Calcium 7.7 L 7.1 L Magnesium 5.0 H Total Bilirubin 1.1 1.0 AST 21 23 ALT 17 16 Alkaline Phosphatase 188 H 168 H Total Protein 7.0 6.0 L Albumin 3.5 3.2 L OB - PN A/P Assessment and Plan (1) Preeclampsia: Code(s): O14.90 - Unspecified pre-eclampsia, unspecified trimester Status: Acute (2) Vaginal delivery: Code(s): O80 - Encounter for full-term uncomplicated delivery Status: Acute Plan day 1 severe preeclampsia continue magnesium sulfate x 24 hours hypokalemia plan IV replacement co-managing with dr. forrester Time Spent With Patient Time: Total time spent is greater than 50% in coordination of care (as documented) at patient's floor/unit and/or counseling patient: Review of Systems Review of Systems: All systems reviewed & are unremarkable except as noted in HPI and below Exam Const: General: cooperative and healthy appearing Chest: Chest palpation & inspection: normal inspection of the chest Resp: Effort & Inspection: normal respiratory effort Cardio: Rate: regular rate Rhythm: regular rhythm GI: Other: soft Skin: General skin exam: normal color Neuro: General: patient oriented x3 Extrem: General: normal to inspection Psych: Appearance: grossly normal
--- NOTE | 2023-08-24 07:44 | WPDANLDPN2 ---
Anes-Prog Note L&D Date/Time: 08/24/23 07:44 Comfortable throughout: labor and delivery Neuraxial method: epidural Epidural/Spinal procedure site: tender Neuro status: Neuro function grossly intact. Cardiovascular status: normal (HTN) Respiratory status: normal Airway patency: baseline Mental status: baseline Post-Op hydration status: normal Vital Signs: Last Vital Signs Temp 37.5 C 08/24/23 05:30 Pulse 95 08/24/23 06:06 Resp 16 08/24/23 05:30 BP 155/96 H 08/24/23 05:30 Pulse Ox 97 08/24/23 05:30 O2 Del Method Room Air 08/22/23 15:21 Pain score (VAS): 2/10 I/O: Intake & Output 08/23/23 08/23/23 08/24/23 15:59 23:59 07:59 Intake Total 1629.2 370.8 2500 Output Total 1800 Balance 1629.2 370.8 700 Post-procedural complaints: none Patient feedback: Patient satisfied with anesthetic care.
[2023-08-24] MEDS: ACETAMINOPHEN 325 MG TABLET 650 MG PO ×2 (12:26→18:40)
--- NOTE | 2023-08-24 12:34 | PCCCNOTE ---
Per Care Coordination. Patient referred to CC for positive marijuana UDS for mom. Baby not tested. Met with pt. and FOB at bedside. They live together. Pt. reports good family support. She had baby shower and has all necessary baby care items. She is setup with WIC. She did not want list of resources. Provided them a basket of items. Pt. denies issues with occasional marijuana use and does not want substance use resources. Spoke with Darren at [facility] Hotline who took pt.'s situation as information only Intake ID#[id number].
[2023-08-24] MEDS: IBUPROFEN 600 MG TABLET PO (18:40)
[2023-08-24] MEDS: LANOLIN (LANSINOH) 7.5 GM CREAM 1 APPLIC TOPICAL (21:52)
[2023-08-24] MEDS: POTASSIUM CHLORIDE INJ 40 MEQ in SODIUM CHLORIDE 0.9% IV 500 ML 130 MEQ IVPB (22:55)
[2023-08-25 00:30] VITALS: BP 135/94; PULSE 83; RESP 16; TEMP 37.1; O2SAT 99
[2023-08-25 04:30] VITALS: BP 127/83; PULSE 66; RESP 16; TEMP 36.6; O2SAT 99
[2023-08-25 06:26] VITALS: PULSE 66
[2023-08-25] MEDS: LABETALOL HCL 100 MG TABLET 200 MG PO (06:26)
[2023-08-25 07:50] VITALS: BP 140/90; PULSE 70; RESP 16; TEMP 37.2; O2SAT 99
--- NOTE | 2023-08-25 08:20 | PM.OBPNVD ---
OB - PN: Subj Subjective Date/time seen: 08/25/23 08:20 Interval history: post day 1 magnesium sulfate x 24 hours post delivery voiding without difficulty, passing flatus no severe range pressures, denies headache, visual changes, epigastric pain Patient comments: no complaints, pain well controlled and tolerating diet OB - PN: Obj Data Labs 08/24/23 04:52 08/24/23 04:52 OB - PN A/P Plan day: 2 Plan: routine care (continued observation for pree) Time Spent With Patient Time: Total time spent is greater than 50% in coordination of care (as documented) at patient's floor/unit and/or counseling patient: Exam Const: General: comfortable and no acute distress Resp: Effort & Inspection: normal respiratory effort Auscultation: no rales, no rhonchi and no wheezes Cardio: Rate: regular rate Heart sounds: no click, no murmurs and no rubs GI: GI Palp: Yes Soft to palpation and No Tenderness to palpation present (GI) Auscultation: normal bowel sounds Extrem: General: normal to inspection, no pedal edema and no calf tenderness
--- NOTE | 2023-08-25 10:30 | PC.NURSE ---
Consulted with mother concerning and pumping after transfer to [facility]. Mother has been attempting feeding with infant for 15 minutes, pumping, and supplementing per the child protective investigator's order. Patient understands stimulating her breasts every 3-4 hours if she is not able to put to breast or if infant does not feed effectively. Encouraged patient to take all of her Medela breast pump parts to NICU to use with their pump. Encouraged her to use the support resources available at [facility]. Reinforced understanding of milk production, community resources available, and mother/baby guide. Mother voiced understanding of the information shared, is confident knowing when to call for assistance, denies any additional assistance or education at this time. Reported to the Primary RN.
--- NOTE | 2023-09-16 08:05 | PM.OBDSVD ---
DS: Admitting Diagnosis Discharge Date 08/25/23 Admitting Diagnosis IUGR, 36 week gestation DS: Discharge Diagnosis Discharge Diagnosis (1) growth restriction: Status: Acute OB - DS: Summary OB Procedures : NST OB Procedures Intrapartum: Spontaneous Vag Delivery OB Procedures: : None Peripartum Data Laceration Description: None Episiotomy description: None Time Spent with Patient Time attestation: Total time spent providing and/or coordinating discharge services: DS: Data Data Completed and Pending Completed studies during hospitalization: Pending at discharge 08/23/23 22:23 Surgical [PTH] Routine Discharge Plan Discharge Consulting providers: Taylor Juarez; Soni Foster; Andres Chino Discharging Clinician: Chase Moralez Anticipated Discharge Date/Time: 08/25/23 10:30 Patient Disposition: Home, Self-Care Activity: other - see discharge instructions Diet: regular Discharge Instructions: Education: Mom and Baby Guide Given to: Mother Follow-Up: Call your delivering provider's office for an appointment to be seen in: 4 Weeks Mom and baby should come to the [facility] for the follow-up appointment. Appointment Date/Time: August 27, 2023 at 8:00 am What to expect at your follow-up visit: Blood Pressure Check Call [phone] if you are unable to keep your appointment time. BREAST CARE: * Wear a snug supportive bra. * For engorgement discomfort: Breast Feeding: * Apply warm moist washcloths * Express milk as needed to relieve engorgement * Wear loose clothing * For sore nipples: * Identify correct latch-on * Apply warm moist washcloths before and after nursing * Air dry nipples after nursing * May apply Lansinoh cream to nipples EPISIOTOMY/PERINEAL CARE: * Until bleeding stops, use your noble bottle after urinating * Change your pad frequently throughout the day * You may take sitz baths several times a day (fill your bathtub with warm water and soak for 20 minutes.) Do NOT bathe in the water * No tub baths until seen by your physician - You may shower ACTIVITY: * Rest as much as possible. * Do not exercise or lift anything heavier than your baby (such as laundry or other children.) * Avoid stairs or driving as much as possible. * Do not put anything into the vagina. No douching, tampons, or sexual activity until seen by physician. NOTIFY PHYSICIAN IF YOU HAVE ANY QUESTIONS OR IF ANY OF THE FOLLOWING SYMPTOMS OCCUR: * If your perineum becomes red, swollen, or more painful than what you have experienced in the hospital. * If your vaginal bleeding becomes foul smelling. * If your vaginal bleeding becomes more heavy than a period or if your bleeding changes from pink to bright red. However, you may pass an occasional walnut-sized clot once or twice for the first week . * If you experience a sharp, shooting pain in you calves. * If you discover a hard, reddened area on your breast or if you experience flu-like symptoms. DIET: * Eat regular, well-balanced meals. * Drink plenty of fluids daily. If , drink to thirst. Patient viewed the discharge video Mother & Baby Care, The First Two Weeks . Patient was given the opportunity and encouraged to ask questions. Patient verbalized understanding of information shared and has been given the mother/baby guide for home reference. Stand Alone Forms: General Discharge Information Follow-up/Referrals: Taylor Juarez CNM [Primary Care Provider] - Discharge Medications: New acetaminophen 325 mg Tablet 650 mg PO Q6H PRN (Reason: Mild Pain (1-3) Or Headache) 0RF Dermoplast (with menthol) 20-0.5 % Aerosol 1 spray topical PRN PRN (Reason: Perineal Discomfort) 0RF ibuprofen 600 mg Tablet 600 mg PO Q6H PRN (Reason: Cramping) 0RF labetalol 100
== END 2023-08-25 11:10 | disposition home or self-care (01) | DRG 805 ==
LOC: ANHLDR 11:25 → ANHOB2 08-24 02:04
PROVIDERS: Admitting Provider Obstetrics & Gynecology; PCP Advanced Practice Midwife; Visit Provider Obstetrics & Gynecology
DX: O36.5930 Maternal care for other known or suspected poor fetal growth, third trimester, not applicable or unspecified (principal); O60.14X0 Preterm labor third trimester with preterm delivery third trimester, not applicable or unspecified; Z37.0 Single live birth; O99.324 Drug use complicating childbirth; Z3A.36 36 weeks gestation of pregnancy; O14.14 Severe pre-eclampsia complicating childbirth; F12.90 Cannabis use, unspecified, uncomplicated
CPT/HCPCS: 36415; 59025; 76819; 80053; 80307; 81001; 82570; 83735; 84156; 84550; 85025; 85027; 85055; 86592; 86703; 86850; 86900; 86901; 87086; 88307; 99199; A9270; G0432; J2405; J2590; J2795; J3010; J3475; J3480; J7030; J7040; J7120